=== PATIENT | female | born 1930 | race African-American/Black ===

== ENCOUNTER 2016-10-04 15:33 | Emergency (ER) | payer BC, MEDICARE ==
[~2016-10-04] VITALS: Ht 162.6 cm; Wt 57.0 kg
[~2016-10-04 15:33] MED LIST: ASPI-986 PO; GABA250S4 PO
[2016-10-04] MEDS ORDERED: BACITRACIN ZINC OINT UDPKT TOP ONE (18:30)
[2016-10-04 20:21] VITALS: BP 154/78
== END 2016-10-04 20:23 | disposition home or self-care (01) ==
LOC: ER 16:34
DX: S00.81XA Abrasion of other part of head, initial encounter (principal); S50.812A Abrasion of left forearm, initial encounter; V49.49XA Driver injured in collision with other motor vehicles in traffic accident, initial encounter; Y93.89 Activity, other specified; Y92.488 Other paved roadways as the place of occurrence of the external cause; Z79.82 Long term (current) use of aspirin
CPT/HCPCS: 70450; 99284

== ENCOUNTER 2016-10-18 12:32 | Emergency (ER) | payer MEDICARE ==
[~2016-10-18] VITALS: Ht 165.1 cm; Wt 50.0 kg
[2016-10-18 12:34] VITALS: BP 160/90
== END 2016-10-18 13:45 | disposition left against medical advice (07) ==
LOC: ER 12:42
DX: Z53.21 Procedure and treatment not carried out due to patient leaving prior to being seen by health care provider (principal)

== ENCOUNTER 2018-05-31 09:30 | Inpatient (IN) | payer MEDICARE ==
[~2018-05-31] VITALS: Ht 165.1 cm; Wt 47.6 kg
[2018-05-31 10:43] LABS: BASOPHILS % 0.5 % (0.0-2.0); HEMATOCRIT. 40.5 % (36.0-48.0); HEMOGLOBIN. 13.1 g/dL (12.0-16.0); LYMPHOCYTES % 24.4 % (20.0-50.0); MEAN CORPUSCULAR HEMOGLOBIN 25.8 pg (28.0-32.0); MEAN CORPUSCULAR VOLUME 80.1 fL (81.0-99.0); MEAN PLATELET VOLUME 6.3 fl (7.4-10.4); MONOCYTES % 9.1 % (2.0-8.0); PLATELET 394 x1000/uL (130-400); RED BLOOD CELL COUNT 5.06 mill/uL (4.2-5.4); RED CELL DISTRIBUTION WIDTH 15.6 % (11.6-14.6)
[2018-05-31 10:46] LABS: CHLORIDE 102 mEq/L (98-107)
[2018-05-31 10:50] LABS: PARTIAL THROMBOPLASTIN TIME 46.3 sec (23.4-31.0); PROTHROMBIN TIME 9.8 sec (9.6-11.0)
[2018-05-31] MEDS ORDERED: ASPIRIN 325MG EC TABLET PO ONE (11:30)
[2018-05-31] MEDS ORDERED: CLONIDINE 0.1MG TABLET PO PRN (11:45)
[2018-05-31] MEDS ORDERED: ACETAMINOPHEN 325MG TABLET PO PRN (11:45)
[2018-05-31] MEDS ORDERED: LEVOFLOXACIN 500MG PREMIX 100 ML IV SCH (11:45)
[2018-05-31] MEDS ORDERED: ASPIRIN 81MG TABLET PO ONE (13:15)
[2018-05-31] MEDS ORDERED: LORAZEPAM 2MG/ML CPJ IV ONE ×2 (14:30)
[2018-05-31 14:48] LABS: CLARITY URINE CLEAR (CLEAR); COLOR URINE YELLOW (YELLOW); KETONES URINE NEGATIVE (NEGATIVE); LEUKOCYTE ESTERASE URINE NEGATIVE (NEGATIVE); NITRITE URINE NEGATIVE (NEGATIVE); OCCULT BLOOD URINE NEGATIVE (NEGATIVE); PROTEIN URINE NEGATIVE (NEGATIVE); SPECIFIC GRAVITY URINE 1.008 (1.005-1.030); UROBILINOGEN URINE 0.2 E.U./dL (0.2-1.0)
[2018-05-31 16:54] VITALS: BP 141/73
[2018-05-31 16:59] VITALS: BP 141/73
[2018-05-31 20:00] VITALS: BP 156/86
[2018-05-31] MEDS: LORAZEPAM 2MG/ML CPJ IV PRN (22:02)
[2018-06-01] VITALS: BP 168/91
[2018-06-01 04:00] VITALS: BP 149/73
[2018-06-01 06:25] LABS: BASOPHILS % 0.3 % (0.0-2.0); EOSINOPHILS % 0.1 % (0.0-5.0); HEMOGLOBIN. 13.3 g/dL (12.0-16.0); LYMPHOCYTES % 18.7 % (20.0-50.0); MEAN CORPUSCULAR HEMOGLOBIN 25.4 pg (28.0-32.0); MEAN CORPUSCULAR VOLUME 80.3 fL (81.0-99.0); MEAN PLATELET VOLUME 6.6 fl (7.4-10.4); MONOCYTES % 9.6 % (2.0-8.0); NEUTROPHILS % 71.3 % (40.0-76.0); PLATELET 418 x1000/uL (130-400); RED BLOOD CELL COUNT 5.22 mill/uL (4.2-5.4); RED CELL DISTRIBUTION WIDTH 15.7 % (11.6-14.6)
[2018-06-01 07:11] LABS: CHLORIDE 104 mEq/L (98-107)
[2018-06-01 07:26] LABS: LDL CHOLESTEROL 126 mg/dL (5-100)
[2018-06-01 07:28] LABS: HDL CHOLESTEROL 106 mg/dL (40-59)
[2018-06-01 07:44] VITALS: BP 154/87
[2018-06-01] MEDS: LORAZEPAM 2MG/ML CPJ IV PRN ×2 (10:10→16:00)
[2018-06-01] MEDS: LEVOFLOXACIN 250MG PREMIX 50 ML IV SCH (10:10)
[2018-06-01] MEDS ORDERED: POTASSIUM CHLORIDE 20MEQ/PACKET PO NR (10:50)
[2018-06-01] MEDS: RISPERIDONE 0.5MG TABLET PO SCH (11:27)
[2018-06-01 12:00] VITALS: BP 137/78
[2018-06-01] MEDS ORDERED: POTASSIUM CHLORIDE INJ 40 MEQ in DEXT 5% WATER 250 ML IV NR (12:30)
[2018-06-01 15:57] LABS: VITAMIN B12 SERUM 996 pg/mL (211-911)
[2018-06-01 16:36] VITALS: BP 143/78
[2018-06-01] MEDS ORDERED: SODIUM CHLORIDE 0.9% 250 ML IV ONE (17:02)
[2018-06-01 20:00] VITALS: BP 151/95
[2018-06-01] MEDS ORDERED: DIGOXIN 500MCG/2ML AMP IV NR (20:15)
[2018-06-01] MEDS: ATORVASTATIN CALCIUM 20MG TABLET PO SCH (21:14)
[2018-06-01] MEDS: MEMANTINE HCL 5MG TABLET PO SCH (21:14)
[2018-06-01 23:44] LABS: PHOSPHORUS 2.4 mg/dL (2.5-4.9)
[2018-06-02] VITALS: BP 130/70
[2018-06-02 04:00] VITALS: BP 149/80
[2018-06-02 05:51] LABS: BASOPHILS % 0.1 % (0.0-2.0); HEMATOCRIT. 45.8 % (36.0-48.0); HEMOGLOBIN. 14.4 g/dL (12.0-16.0); LYMPHOCYTES % 10.4 % (20.0-50.0); MEAN CORPUSCULAR HEMOGLOBIN 25.4 pg (28.0-32.0); MEAN CORPUSCULAR VOLUME 80.8 fL (81.0-99.0); MEAN PLATELET VOLUME 6.6 fl (7.4-10.4); MONOCYTES % 6.8 % (2.0-8.0); NEUTROPHILS % 82.7 % (40.0-76.0); PLATELET 412 x1000/uL (130-400); RED BLOOD CELL COUNT 5.67 mill/uL (4.2-5.4); RED CELL DISTRIBUTION WIDTH 15.6 % (11.6-14.6)
[2018-06-02 06:45] LABS: CHLORIDE 102 mEq/L (98-107)
[2018-06-02 06:53] LABS: PHOSPHORUS 3.1 mg/dL (2.5-4.9)
[2018-06-02 08:22] VITALS: BP 114/57
[2018-06-02] MEDS: MEMANTINE HCL 5MG TABLET PO SCH ×2 (08:51→20:57)
[2018-06-02] MEDS: RISPERIDONE 0.5MG TABLET PO SCH (08:51)
[2018-06-02] MEDS: METOPROLOL TARTRATE 25MG TABLET PO SCH ×2 (08:52→20:56)
[2018-06-02] MEDS: LEVOFLOXACIN 250MG PREMIX 50 ML IV SCH (11:03)
[2018-06-02 12:26] LABS: T4 FREE 1.42 ng/dL (0.76-1.46)
[2018-06-02 12:51] VITALS: BP 112/60
[2018-06-02 16:10] LABS: CREATINE KINASE MB FRACTION 11.7 ng/mL (0.5-3.6)
[2018-06-02 16:16] VITALS: BP 103/53
[2018-06-02 20:00] VITALS: BP 109/53
[2018-06-02] MEDS: ATORVASTATIN CALCIUM 20MG TABLET PO SCH (20:57)
[2018-06-02 23:23] LABS: CREATINE KINASE MB FRACTION 6.9 ng/mL (0.5-3.6)
[2018-06-03] VITALS: BP 98/82
[2018-06-03 04:00] VITALS: BP 115/62
[2018-06-03 06:46] LABS: BASOPHILS % 0.3 % (0.0-2.0); EOSINOPHILS % 0.8 % (0.0-5.0); HEMATOCRIT. 39.7 % (36.0-48.0); LYMPHOCYTES % 19.4 % (20.0-50.0); MEAN CORPUSCULAR HEMOGLOBIN 26.2 pg (28.0-32.0); MEAN CORPUSCULAR VOLUME 79.9 fL (81.0-99.0); MEAN PLATELET VOLUME 6.7 fl (7.4-10.4); MONOCYTES % 11.7 % (2.0-8.0); NEUTROPHILS % 67.8 % (40.0-76.0); PLATELET 390 x1000/uL (130-400); RED BLOOD CELL COUNT 4.97 mill/uL (4.2-5.4); RED CELL DISTRIBUTION WIDTH 15.8 % (11.6-14.6)
[2018-06-03 07:01] LABS: CHLORIDE 104 mEq/L (98-107)
[2018-06-03 07:23] LABS: CREATINE KINASE 345 IU/L (26-192)
[2018-06-03 07:26] LABS: CREATINE KINASE MB FRACTION 6.4 ng/mL (0.5-3.6)
[2018-06-03 08:27] VITALS: BP 140/65
[2018-06-03] MEDS: MEMANTINE HCL 5MG TABLET PO SCH (08:34)
[2018-06-03] MEDS: METOPROLOL TARTRATE 25MG TABLET PO SCH (08:34)
[2018-06-03] MEDS: RISPERIDONE 0.5MG TABLET PO SCH (08:34)
[2018-06-03] MEDS ORDERED: POTASSIUM CHLORIDE 20MEQ/PACKET PO SCH (10:00)
[2018-06-03 10:05] VITALS: BP 140/65
[2018-06-03] MEDS: LEVOFLOXACIN 250MG PREMIX 50 ML IV SCH (10:25)
[2018-06-03 12:00] VITALS: BP 108/61
[2018-06-04] MEDS ORDERED: LEVOFLOXACIN 250MG TABLET PO SCH (11:00)
== END 2018-06-03 14:00 | disposition home or self-care (01) | DRG 884 ==
LOC: ER 09:30 → 8WST 11:42 → EDBEDREQ 11:43 → EDBEDREQTM 11:44 → EDBEDREQ 11:44 → ENRESERV 15:43
PROVIDERS: ADMIT Internal Medicine Nephrology; ATTEND Internal Medicine Nephrology
DX: F03.90 Unspecified dementia, unspecified severity, without behavioral disturbance, psychotic disturbance, mood disturbance, and anxiety (principal); I47.1 Supraventricular tachycardia; I10 Essential (primary) hypertension; E87.6 Hypokalemia; D17.0 Benign lipomatous neoplasm of skin and subcutaneous tissue of head, face and neck; E78.5 Hyperlipidemia, unspecified; Z79.82 Long term (current) use of aspirin
CPT/HCPCS: 36415; 71045; 76800; 80048; 80061; 82550; 82553; 82607; 82962; 83036; 83735; 83880; 84100; 84439; 84443; 84484; 85379; 92610; 93005; 93306; 93970; 96365; 97162; 97166; 97530; 99285; C1893; J1160; J1956; J2060; J3480; J7040; J7050; J7060